=== PATIENT | female | born 1965 | race Caucasian/White ===

== ENCOUNTER → 2018-08-14 13:53 | Outpatient (CLI) | payer OTHER, SELFPAY ==
--- NOTE | 2018-08-14 | DI.RAD.S_ITS ---
PROCEDURE: XR LUMBAR SPINE 2-3V INDICATIONS: Other idiopathic scoliosis, thoracolumbar region TECHNIQUE: 2 views of the lumbar spine were acquired. COMPARISON: None. FINDINGS: Bones: 5 [id number] vertebrae are present. There is normal bony alignment. Mild degenerative disc disease at L4-5 and L5-S1 levels are seen. No vertebral body compression fractures. No suspicious bony lesions. Soft tissues: Overlying bowel gas pattern is normal. No suspicious soft tissue calcifications. IMPRESSION: Mild degenerative disc disease in lower lumbar spine. No compression fracture or traumatic spondylolisthesis. Dictated by: Kike Cardenas M.D. on 08/14/2018 at 15:39 Approved by: Kike Cardenas M.D. on 08/14/2018 at 15:41
--- NOTE | 2018-08-14 | DI.RAD.S_ITS ---
PROCEDURE: XR THORACIC SPINE 3V INDICATIONS: Other idiopathic scoliosis, thoracolumbar region TECHNIQUE: 3 views of the thoracic spine were acquired. COMPARISON: None. FINDINGS: Bones: Moderate to severe dextroscoliosis of upper thoracic spine is seen centered at T3 level with Ambrocio angle measures 47?. There is suggestion of left-sided compression deformity at L2 and L3 levels. No spondylolisthesis. No other compression deformity is seen in thoracic spine. No suspicious bony lesions. 12 pairs of ribs are noted, and appear intact where visualized. Soft tissues: No paravertebral stripe thickening. IMPRESSION: Left-sided compression deformity involving T2 and T3 vertebral bodies with moderate to severe dextroscoliosis of upper thoracic spine centered at T3 level and Ambrocio angle measures 47?. Dictated by: Kike Cardenas M.D. on 08/14/2018 at 15:36 Approved by: Kike Cardenas M.D. on 08/14/2018 at 15:38
== END ==
PROVIDERS: PCP Physician Assistant; Visit Provider Physician Assistant
DX: M41.25 Other idiopathic scoliosis, thoracolumbar region (principal); M54.89 Other dorsalgia; M51.36 Other intervertebral disc degeneration, lumbar region; M51.37 Other intervertebral disc degeneration, lumbosacral region
CPT/HCPCS: 72072; 72100

== ENCOUNTER → 2018-08-28 13:48 | Outpatient (CLI) | payer OTHER, SELFPAY ==
--- NOTE | 2018-08-28 | DI.MRI.S_ITS ---
PROCEDURE: MR THORACIC SPINE WO CON INDICATIONS: Wedge compression fracture of unspecified thoracic TECHNIQUE: Noncontrast sagittal T1 spine echo and T2 fast spin echo, sagittal STIR, axial T1 and T2 fast spin echo through the thoracic spine. COMPARISON: [facility], CR, XR LUMBAR SPINE 2-3V, 08/14/2018, 14:09. [facility], CR, XR THORACIC SPINE 3V, 08/14/2018, 14:09. FINDINGS: Image quality: Excellent. Alignment and Curvature: Severe dextroscoliosis involving the cervicothoracic spine, centered at T2. Bone Marrow: There is marrow signal change involving the L4 and L5 vertebral bodies centered at the level of L4-L5 disc seen on the sagittal localization pulse sequence however incomplete evaluation and not included on the diagnostic pulse sequences. There is wedging deformity of the T2 and T3 vertebral bodies however this is probably related to chronic scoliosis and possible spinal segmentation anomaly rather than fracture, in the absence of marrow edema. No acute vertebral body compression fractures. Spinal Cord: Small syrinx involving the lower cervical cord at the level of C6-C7. There is eccentric location of the cord within the left side of the canal due to severe dextroscoliosis. However, no definite canal stenosis identified. Moderate to severe left foraminal narrowing related to scoliosis seen at the level of T2-T3 and T3-T4.. Paraspinous Soft Tissues: No paravertebral masses. Incidental cholelithiasis noted IMPRESSION: Severe dextroscoliosis of the cervicothoracic spine centered at T2. Associated left-sided foraminal narrowing at T2-T3 and T3-T4. Incidental cholelithiasis. No evidence of acute fracture. Wedging deformities of the T3 and T2 vertebral bodies could be related to congenital spinal segmentation anomaly. No evidence of acute marrow edema Marrow signal changes in the lower lumbar spine could be degenerative although technically indeterminate and not sufficiently evaluated as above; further evaluation with dedicated lumbar spine MRI could be performed as clinically warranted Incidentally noted is syrinx seen in the lower cervical cord at the level of C6-C7 Dictated by: Rey Fiore M.D. on 08/28/2018 at 15:22 Approved by: Rey Fiore M.D. on 08/28/2018 at 15:40
== END ==
PROVIDERS: Family Provider Chiropractor; PCP Physician Assistant; Visit Provider Physician Assistant
DX: S22.000A Wedge compression fracture of unspecified thoracic vertebra, initial encounter for closed fracture (principal); M48.04 Spinal stenosis, thoracic region; M41.83 Other forms of scoliosis, cervicothoracic region; K80.20 Calculus of gallbladder without cholecystitis without obstruction
CPT/HCPCS: 72146

== ENCOUNTER → 2018-10-15 12:36 | Outpatient (CLI) | payer OTHER, SELFPAY ==
--- NOTE | 2018-10-15 | DI.RAD.S_ITS ---
PROCEDURE: XR T AND L SPINE 2 TO 3 VIEWS INDICATIONS: OTHER IDIOPATHIC SCOLIOSIS, THORACOLUMBAR REGION TECHNIQUE: 2 views acquired of the thoracolumbar spine. COMPARISON: [facility], CR, XR LUMBAR SPINE MIN 4V, 10/15/2018, 12:49. [facility], MR, MR LUMBAR SPINE WITHOUT CONTRAST, 10/11/2018, 11:14. [facility], MR, MR THORACIC SPINE WO CON, 08/28/2018, 14:04. [facility], CR, XR LUMBAR SPINE 2-3V, 08/14/2018, 14:09. [facility], CR, XR THORACIC SPINE 3V, 08/14/2018, 14:09. FINDINGS: Bones: No acute fractures or dislocations. There is approximately 61? of dextroscoliosis from the superior and plate of C7 to the inferior endplate of T6. There is approximately 29? of levoscoliosis from the inferior endplate of T6 to the superior endplate of L1. Mild/borderline positive coronal balance. There is negative sagittal balance. 5 [id number] lumbar vertebra. IMPRESSION: 61? of dextroscoliosis from C7-T6. 29? of levoscoliosis from T6-L1. Positive coronal balance. Negative sagittal balance. Dictated by: Rey Fiore M.D. on 10/15/2018 at 15:01 Approved by: Rey Fiore M.D. on 10/15/2018 at 15:09
--- NOTE | 2018-10-15 | DI.RAD.S_ITS ---
PROCEDURE: XR LUMBAR SPINE MIN 4V INDICATIONS: CHRONIC MIDLINE LOW BACK PAIN, WITH SCIATICA PRESENCE UNSPECIFED TECHNIQUE: 5 views of the lumbar spine acquired. COMPARISON: [facility], , XR LUMBAR SPINE 2-3V, 08/14/2018, 14:09. FINDINGS: Bones: 5 nonrib-bearing vertebrae are present. There is normal bony alignment. No vertebral body compression fractures. No suspicious bony lesions. Soft tissues: Overlying bowel gas pattern is normal. No suspicious soft tissue calcifications. Flexion/extension: There is slightly decreased range of motion, with preserved normal alignment. IMPRESSION: Slightly decreased range of motion. No compression fracture or spondylolisthesis. Dictated by: Kike Cardenas M.D. on 10/15/2018 at 14:39 Approved by: Kike Cardenas M.D. on 10/15/2018 at 14:40
== END ==
PROVIDERS: Family Provider Chiropractor; PCP Physician Assistant; Visit Provider Orthopaedic Surgery
DX: M54.40 Lumbago with sciatica, unspecified side (principal); M41.25 Other idiopathic scoliosis, thoracolumbar region; G89.29 Other chronic pain
CPT/HCPCS: 72082; 72110